=== PATIENT | female | born 1995 | race Caucasian/White ===

== ENCOUNTER → 2021-11-08 | Outpatient (CLI) | payer OTHER ==
[~2021-11-08] MED LIST: COLACE 100MG C100 MG PO; NORCO 5-325 TA1 EACH PO; OMNICEF 300 MG300 MG PO; PRENATAL VITAM1 EAC8 PO
== END ==
LOC: EXRD 10:11
DX: R10.13 Epigastric pain (principal); R10.11 Right upper quadrant pain; K80.20 Calculus of gallbladder without cholecystitis without obstruction
CPT/HCPCS: 76705